=== PATIENT | male | born 1930 | race Caucasian/White ===

== ENCOUNTER 2016-05-16 01:08 | Emergency (ER) | payer MEDICARE ==
[2016-05-16] MEDS ORDERED: Metoprolol Tartrate 5 MG in Sodium Chloride 0.9% 50 ML IV ONE (01:46)
[2016-05-16] MEDS ORDERED: Metoprolol Tartrate 50 MG Tab PO ONE (01:46)
[2016-05-16 05:22] VITALS: BP 151/119
--- NOTE | 2016-05-16 10:52 | CR ---
INDICATION: Confusion. CHEST: An AP upright portable view of the chest was obtained, revealing evidence of median sternotomy with heart at the upper limits of normal in size and prominent left ventricular contour. The aorta is tortuous with calcification in the arch. Overlying EKG leads are noted. The lungs appear to be hyperaerated, raising question of COPD. Basilar patchy pneumonia is difficult to exclude with the heavy markings present. IMPRESSION: No definite acute process - multiple findings as noted above. MTDD
--- NOTE | 2016-05-18 11:46 | ER ---
DATE SEEN: 05/16/2016 TIME SEEN: The patient was seen at 0124 hours. 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 He left his residence in [place] and got lost and he was found in a field nearby, approximately [place]iles from [place]. His car had stopped becasue it had run out of gas He complained because the police had picked him up and was complaining " all I di was run out of gas..." PAST MEDICAL HISTORY: Significant for 3-vessel CABG in 2004, aortic abdominal aneurysm repair in 2005, left leg and back surgery 07/2010, right lower leg surgery vascular repair 11/2010, stent placed 11/03/2002. Right carotid endarterectomy November 12, 2002. All these surgeries were performed at [facility]. The patient denies allergies, diabetes, heart disease, high blood pressure, asthma, or other serious illnesses. The patient had been transferred to the hospital by the police for further evaluation. Additional past medical history of hypertension, dyslipidemia with elevated triglycerides, and prostatism. SOCIAL HISTORY: Never was a smoker. Denies use of tobacco. Alcohol: Frequently. Oriented x2. He does not know the time. REVIEW OF SYSTEMS: HEENT: Negative except he wears glasses. Denies headache or trauma. CARDIORESPIRATORY: Denies chest pain, shortness of breath, irregular heartbeat. Does have coughing occasionally. Nonproductive. Denies shortness of breath or PINZON. GI: He denies gastrointestinal complaints, acid peptic disease, GERD, jaundice, nausea, vomiting, diarrhea, constipation, blood in the stool, or black tarry stool. : Has mild difficulty with passing urine. Has prostatism. MUSCULOSKELETAL: Mild arthritis. MEDICATIONS: 1. Flomax (tamsulosin) 0.4 mg daily. 2. Finasteride 5 mg daily. 3. Aspirin. 4. Simvastatin 40 mg b.i.d. 5. Hydrochlorothiazide 25 mg. 6. Metoprolol succinate 50 mg b.i.d. IMMUNIZATIONS: Up-to-date last 6 years. PHYSICAL EXAMINATION: VITAL SIGNS: Blood pressure 165/86, heart rate 90, respirations 19, and oxygen saturation 98%. GENERAL: The patient has slightly sander faced. He is slightly defensive. He advised me very clearly and articulately he would not like to lie down because this causes him to black out. He has been evaluated at [facility], and "theynever found out what is the cause or problem when he blacks out"... (possible carotid or possible vertebral artery compromise). He had a carotid stent. He still has these symptoms when he lies down and is presently violently opposed to lying down, in fact, threatened me with a fist if I should force him, and shouted at me clearly telling me, "do not put me down, do not put me down." HEENT: Arterial narrowing noted in the eyes. PERRLA intact. Pharynx without abnormality. No alcohol on his breath. No cervical adenopathy. No bruits in the neck. LUNGS: Clear to auscultation with occasional basilar rales. No wheezes, no rhonchi. HEART: S1, S2. No murmur. No irregular rate and rhythm. ABDOMEN: Soft. No guarding. No abdominal discomfort. No hepatosplenomegaly. EXTREMITIES: Without abnormality. No pedal edema. RECTAL: Not performed. MUSCULOSKELETAL: Mild arthritis in joints. No tenderness. ENDOCRINE: Negative. No thyromegaly. LABORATORY STUDIES: Hemoglobin 16.8, white count 9700, PMNs 79, lymphocytes 11, and platelets 181,000. Complete metabolic panel: Sodium 139, potassium 4.9, chloride 104, bicarbonate 25, BUN and creatinine ratio 17.3 (normal), creatinine 1.5, BUN 26, and glucose slightly elevated at 135. Liver enzymes negative. Troponin was not done. Toxicology: Ethyl alcohol less than 0.01. IMAGING: He had a CAT scan of his brain. No intracranial process noted. Postoperative changes to right maxillary sinus noted with opacification of right maxillary sinus. EKG: Bundle branch block. Occasional PVC. CT interval decreased. Sinus rhythm. ASSESSMENT: 1. Confusion. 2. I am concerned about potential dementia. 3. Disorientation. 4. No evidence for transient ischemic attack or cerebrovascular accident. 5. No evidence for hypoglycemia. 6. Mild dehydration. 7. He has a risk for potential rhabdomyolysis with staying in the car for an hour, it was cold last night. His CPK is not elevated. No evidence for ethanolism. 8. Urinalysis, although was ordered, was not collected. 9. The patient dismissed with his son who came to pick him up from [place]. It took a while for his ride natan arrive from [place], and at a certain point the patient got somewhat unmanageable. He became emotionally excited and labile and wanted to get out of here. He had moved from the head of the bed with his IV in place and quality assurance monitor final down to the end of the bed. He started shouting at the nurses, but then settled down with gentle reassurance. The nurses did a beautiful job to reassure the patient. No sedation was required. The patient dismissed with his son to follow up with doctor in a week. 10.The patient was advised he was not allowed to drive until his memory and cognitive dysfunction were cleared by his doctor. Follow up with doctor in 3 to 5 days or earlier if worse. /[id number] [facility]
== END 2016-05-16 05:00 | disposition home or self-care (01) ==
LOC: FB.ED 01:08
DX: E86.0 Dehydration (principal); R41.0 Disorientation, unspecified; I10 Essential (primary) hypertension; E78.5 Hyperlipidemia, unspecified; Z95.1 Presence of aortocoronary bypass graft
CPT/HCPCS: 36415; 70450; 71010; 80053; 82962; 85025; 93005; 99285; A9270; G0480; 99283